=== PATIENT | female | born 1970 | race Two or more races ===

== ENCOUNTER 2017-12-28 05:58 | Day surgery (SDC) | payer OTHER ==
[~2017-12-28 05:58] MED LIST: PRENATAL1 TAB PO; PREVACID30 MG PO; ZITHROMAX1 G/PKT
== END 2017-12-28 13:50 | disposition home or self-care (01) ==
LOC: CIR.AMB 05:58
DX: N84.0 Polyp of corpus uteri (principal)

== ENCOUNTER 2018-12-20 06:16 | Day surgery (SDC) | payer OTHER | END 2018-12-20 13:10 | disposition home or self-care (01) | LOC: CIR.AMB 06:16 | DX: N84.0 Polyp of corpus uteri (principal); Z30.430 Encounter for insertion of intrauterine contraceptive device ==

== ENCOUNTER 2022-01-12 16:10 | Outpatient (CLI) | payer OTHER | END 2022-01-12 16:18 | disposition home or self-care (01) | LOC: RAD 16:10 | PROVIDERS: ATTEND Internal Medicine | DX: J44.1 Chronic obstructive pulmonary disease with (acute) exacerbation (principal) ==

== ENCOUNTER 2024-02-04 15:51 | Emergency (ER) | payer OTHER ==
[~2024-02-04] VITALS: Ht 167.6 cm; Wt 65.8 kg
[2024-02-04] MEDS ORDERED: ONDANSETRON HCL 2 MG/ML VIAL IV ONE (17:30)
[2024-02-04] MEDS ORDERED: FAMOtidine 10 MG/ML (4ML VIAL) IV ONE (17:30)
[2024-02-04] MEDS ORDERED: KETOROLAC TROMETHAMINE 60 MG VIAL IM ONE (17:30)
[2024-02-04 18:29] LABS: HEMATOCRIT 43.8 % (36.0-45.00); HEMOGLOBIN 14.4 g/dL (12.0-15.00); MEAN CELL VOLUME 87.9 fL (80.00-100.00); MEAN CORPUSCULAR HEMOGLOBIN 28.8 pg (27.00-32.0); MEAN CORPUSCULAR HGB CONC 32.8 g/dl (32.0-36.0); PLATELET COUNT 331 K/uL (150-450); RED BLOOD COUNT 4.99 M/uL (4.00-6.00); RED CELL DISTRIBUTION WIDTH 13.5 % (11.5-14.5)
[2024-02-04 18:42] LABS: URINE APPEARANCE Clear; URINE BILIRRUBIN Negative (NEGATIVE); URINE BLOOD Negative; URINE COLOR Yellow; URINE GLUCOSE Negative (NEGATIVE); URINE KETONE Negative (NEGATIVE); URINE LEUKOCYTE Negative; URINE NITRATE Negative; URINE PROTEIN Negative (NEGATIVE)
[2024-02-04 18:46] LABS: URINE BACTERIA 348.8 uL (0.0-1933); URINE EPITHELIAL CELLS 15.4 uL (0.0-38.8); URINE RBC 5.3 uL (0.0-20.8); URINE WBC 28.2 uL (0.0-23.2)
[2024-02-04 18:47] LABS: ALBUMIN 4.2 gm/dL (3.4-5.0); BILIRUBIN TOTAL 0.31 mg/dL (0.3-1.2); CALCIUM 9.6 mg/dL (8.5-10.1); CREATININE SERUM 0.91 mg/dL (0.55-1.02); GFR 65.17; GLOBULINA 3.8 G/DL (2.4-3.5); POTASSIUM 4.24 mEq/L (3.5-5.1)
[2024-02-04 18:54] LABS: INR 0.95; PARTIAL THROMBOPLASTIN TIME 26.8 SECONDS (22.0-34.0); PROTHROMBIN TIME 10.4 SECONDS (9.0-11.5)
[2024-02-04] MEDS ORDERED: DICY20TA PO (21:04)
[2024-02-04] MEDS ORDERED: KETO10TA2 PO (21:04)
[2024-02-04] MEDS ORDERED: PEPCID AC20 MG PO (21:04)
[2024-02-04] MEDS ORDERED: KETOROLAC TROMETHAMINE 30 MG VIAL IM ONE (21:15)
== END 2024-02-04 21:18 | disposition home or self-care (01) ==
LOC: ER 15:53
PROVIDERS: General Practice
DX: R10.30 Lower abdominal pain, unspecified (principal); Q63.2 Ectopic kidney